=== PATIENT | female | born 1965 ===

== ENCOUNTER 2019-10-23 19:06 | Emergency (ER) | payer OTHER ==
[~2019-10-23] VITALS: Ht 175.3 cm; Wt 113.6 kg
[2019-10-23 19:30] VITALS: BP 112/71
[2019-10-23] MEDS ORDERED: SPIR25 PO (19:32)
[2019-10-23] MEDS ORDERED: PHEN250I IV (19:32)
[2019-10-23] MEDS ORDERED: ATOR20TA86 PO (19:32)
[2019-10-23] MEDS ORDERED: TIOT185 IH (19:32)
[2019-10-23] MEDS ORDERED: FLUT1BLS IH (19:32)
[2019-10-23] MEDS ORDERED: CARV3 PO (19:32)
[2019-10-23] MEDS ORDERED: ISOS60TA4 PO (19:32)
[2019-10-23] MEDS ORDERED: OMEP20 PO (19:32)
[2019-10-23] MEDS ORDERED: BUME1TAB34 PO (19:32)
[2019-10-23] MEDS ORDERED: ASPI81 PO (19:32)
[2019-10-23] MEDS ORDERED: LISI-660 PO (19:32)
[2019-10-23] MEDS ORDERED: BECLNS NASAL (19:32)
== END 2019-10-23 20:38 | disposition left against medical advice (07) ==
LOC: EMS 19:08
DX: F41.9 Anxiety disorder, unspecified (principal); I11.0 Hypertensive heart disease with heart failure; I50.9 Heart failure, unspecified; J44.9 Chronic obstructive pulmonary disease, unspecified; E78.00 Pure hypercholesterolemia, unspecified; G89.29 Other chronic pain; Z79.899 Other long term (current) drug therapy; Z79.82 Long term (current) use of aspirin; Z59.0 Homelessness